=== PATIENT | female | born 1995 | race Caucasian/White ===

== ENCOUNTER 2019-06-30 08:37 | Outpatient (CLI) | payer OTHER ==
--- NOTE | 2019-06-30 09:10 | ULT ---
Ultrasound of [facility] upper quadrant: 06/30/2019 COMPARISON:None available HISTORY:Epigastric pain TECHNIQUE: Multiplanar grayscale sonographic imaging of [facility] upper quadrant FINDINGS:Imaged pancreas unremarkable. Tail of pancreas obscured by bowel gas. Hepatic parenchyma is heterogeneous and echogenic, limiting assessment for focal liver lesion and intrahepatic biliary dilatation. These findings suggest hepatocellular disease, such as hepatic steatosis. The common bile duct measures 4 mm, within normal limits. No gallbladder wall thickening or pericholecystic fluid. No gallstones are noted. The right kidney measures 14 cm in craniocaudal dimension and demonstrates no evidence for stone, hyd ronephrosis, or mass. The business process lead reports a negative Mayers's sign. IMPRESSION:No sonographic evidence of cholecystitis, cholelithiasis, or biliary dilatation.
== END 2019-06-30 08:38 | disposition home or self-care (01) ==
LOC: SCSULT 08:37
PROVIDERS: ATTEND Internal Medicine Gastroenterology
DX: R10.13 Epigastric pain (principal)
CPT/HCPCS: 76705

== ENCOUNTER 2024-06-10 08:46 | Outpatient (CLI) | payer BC | END 2024-06-10 08:47 | disposition home or self-care (01) | LOC: DTY/OP 08:46 | PROVIDERS: ATTEND Nurse Practitioner Family | DX: E66.9 Obesity, unspecified (principal); Z68.39 Body mass index [BMI] 39.0-39.9, adult | CPT/HCPCS: 97802 ==